=== PATIENT | female | born 1995 | race Caucasian/White ===

== ENCOUNTER 2021-08-27 14:52 | Emergency (ER) | payer OTHER, SELFPAY ==
--- NOTE | ~2021-08-27 | XR_ITS ---
EXAMINATION: XR SHOULDER, LEFT CLINICAL INFORMATION: Pain COMPARISON: None TECHNIQUE: Left shoulder is imaged in 5 views. FINDINGS: There is no fracture, dislocation, destructive process. The acromioclavicular alignment is normal. The glenohumeral joint appears normal. There are no visible rotator cuff calcifications. Left lung apex is clear. XR/XR shoulder LT min 2V IMPRESSION: Normal left shoulder.
[2021-08-27 15:24] VITALS: BP 147/85; PULSE 98; RESP 18; TEMP 36.6; O2SAT 100; BMI 27.3
--- NOTE | 2021-08-27 17:47 | ED_ITS ---
HPI - Extremity Problem General Chief complaint: Extremity Injury, Upper Stated complaint: L DISLOCATED SHOULDER Time Seen by Provider: 08/27/21 17:47 Source: patient Mode of arrival: ambulatory Limitations: no limitations and other History of Present Illness HPI Narrative: 25 yo female no known medical hx presents to the ED with complaints of left shoulder pain X8-9 hours. Patient tells me that she woke up with pain overlying her left shoulder blade, and shoulder pain, she also reports numbness and tingling overlying her scapula. She tells me she had no trauma to the area. She states that she went to her PCP who told her that she had a dislocated shoulder and she had to come to the emergency department for treatment. Patient states that she is able to move the shoulder, however it hurts. MD Complaint: extremity pain (left shoulder pain ) Onset (ago): hour(s) (9) Pain Consistency: constant Location: left Severity scale (1-10): 10 Quality: constant Radiation: none Exacerbating factors: nothing Associated symptoms: denies other symptoms Related Data Allergies Allergy/AdvReac Type Severity Reaction Status Date / Time No Known Allergies Allergy Unverified 06/11/20 16:58 Review of Systems Review of Systems: Constitutional : No Weight loss, No Fever, No Chills, No Fatigue, No Malaise ENT/Mouth : No sore throat, No Rhinorrhea Eyes: No Eye Pain, No Swelling, No Redness Cardiovascular : No Chest Pain, No SOB, No Dyspnea on Exertion, No Orthopnea, No Edema, No Palpitations Respiratory : No Cough, No Sputum, No Wheezing Gastrointestinal : No Nausea, No Vomiting, No Diarrhea, No Constipation, No abdominal Pain, No Hematochezia, No Melena Genitourinary : No Dysuria, No Urinary Frequency, No Hematuria, Musculoskeletal : + joint pain, No Myalgias, No Joint Swelling Skin : No Skin Lesions, No rash Neuro : No Weakness, No Numbness, No Dizziness, No Headache Psych : No Anxiety/Panic, No Depression All other systems reviewed and are negative [facility] Past Medical History Attestation statement: The following information was validated with the patient. Source: old records reviewed and nursing notes reviewed Medical History No known health problems Social History Social History Advance Directives: No Advance Directives Information Provided: No Physical Exam Vital Signs: Vital Signs: Last Vital Signs Temp 97.8 F 08/27/21 15:24 Pulse 98 08/27/21 15:24 Resp 18 08/27/21 15:24 BP 147/85 H 08/27/21 15:24 Pulse Ox 100 08/27/21 15:24 BMI result Body Mass Index 27.3 VSS Patient noted to be slightly hypertensive, likely secondary to pain Appearance: Alert.? Oriented X3.? No acute distress.? Head: Normocephalic, atraumatic, no step-offs or deformities Eyes: Pupils equal, round and reactive to light.? ENT: Pharynx normal.? Neck: Normal inspection.? Neck supple.? CVS: Normal heart rate and rhythm.? Pulses normal.? Respiratory: No respiratory distress.? Breath sounds normal.? Abdomen: Soft and nontender.? Skin: Skin warm and dry.? Normal skin color.? Normal skin turgor.? Extremities: 5/5 strength to bilateral upper and lower extremities Bilateral shoulders with full range of motion, she reports pain with movement of left shoulder. Patient reports pain to palpation overlying the left scapula, no pain to the right scapula. No overlying skin changes. Sensation and motor intact bilateral upper extremities. 2+ pulses equal bilateral. No s tep-offs or deformities noted. No evident ligamentous or tendon involvement. No signs of dislocation on exam. Patient able to wiggle all fingers. Back: No midline tenderness, no C-spine tenderness, full range of motion, no CVA tenderness bilaterally Neuro: Oriented X 3.? No motor deficit.? No sensory deficit. MDM - Extremity (Nontraumatic) MDM Narrative Medical decision making narrative: 1838 25-year-old healthy female presents to the emergency department with complaints of left shoulder pain, atraumatic that started 8-9 hours ago. Patient states pain is worse with movement better at rest, she also reports pain to the left scapula. She tells me she saw her PCP who told her that she likely has a dislocated shoulder. She denies trauma to the area. Upon physical examination patient appears well, no acute distress. She is able to move all her extremities without any issues. S1-S2 appreciated free of murmurs. Lungs are clear.5/5 strength to bilateral upper and lower extremities Bilateral shoulders with full range of motion, she reports pain with movement of left shoulder. Patient reports pain to palpation overlying the left scapula, no pain to the right scapula. No overlying skin changes. Sensation and motor intact bilateral upper extremities. 2+ pulses equal bilateral. No step-offs or deformities noted. No evident ligamentous or tendon involvement. No signs of dislocation on exam. Patient able to wiggle all fingers. I suspect that this is a cervical/thoracic muscle strain, or shoulder strain. there is reproducible pain to palpation. Patient got an x-ray of the shoulder, which showed no acute findings. No AC separation, no dislocation, no fractures, effusions or joint swelling I tried to explain this to the patient, and I told her that there is no dislocation noted on her x-ray. Patient got very agitated, and told me that there needs to be something that is wrong with her because she is having severe pain to her left scapula, and sometimes she feels like there is pain in her spine. I told her that I cannot rule out any tendon or ligament injuries as this requires an MRI, patient tells me that her primary care provider thought that it was dislocated in its likely dislocated. I tried to share x-ray results with her however she kept telling me your telling me that there is nothing wrong with me . she tried to tell me that her primary care provider was very concerned and that is why they sent her here to the emergency department. I offered to reach out to her primary care provider and speak to her to try to figure out what worrisome symptom was concerning her PCP. Patient tells me that there is no when I can speak to at her PCPs office. She tells me that she is very upset, she is screaming at me and her boyfriend is telling me I do not think you understand what is wrong with her after I asked her of her elbow was bothering her because they noted that she was guarding her left elbow. Patient tells me know this is just a more comfortable position for me. I offered to give the patient medicine for pain, and muscle relaxers and was going to offer her follow-up with Orthopedics however patient left and told me this is something by primary care provider can deal with. I tried to explain to the patient that MRIs are only done in life-threatening situations here in the emergency department as we have limited access. Patient was very rude and boyfriend was very rude. I called security as patient was screaming at me in the hallway in front of other patients and causing a scene. Medical Records Attestation: I reviewed the patient's medical records. Lab Data Attestation: I reviewed the patient's lab results. Imaging Data Left shoulder Xray : Attestation: I personally reviewed and interpreted this imaging study as follows: Radiologist's impression: FINDINGS: There is no fracture, dislocation, destructive process. The acromioclavicular alignment is normal. The glenohumeral joint appears normal. There are no visible rotator cuff calcifications. Left lung apex is clear.? XR/XR shoulder LT min 2V IMPRESSION: Normal left shoulder. Critical Care Time Critical Care Time Critical Care Time: No Discharge Plan Discharge Clinical Impression: Left shoulder strain, Strain of thoracic spine Patient Disposition: Elopement
[2021-08-27] MEDS: Acetaminophen 325 MG TABLET 650 MG PO (18:22)
--- NOTE | 2021-08-27 18:38 | PC.NURSE ---
Provider at bedside discussing results and plan of care. Pts SO became very upset, yelling at provider regarding XRay results. Security contacted, pt and SO fleeing ED before security was able to make it to bedside.
== END 2021-08-27 19:10 | disposition left against medical advice (07) ==
PROVIDERS: Emergency Provider Internal Medicine; PCP Nurse Practitioner Family
DX: S46.911A Strain of unspecified muscle, fascia and tendon at shoulder and upper arm level, right arm, initial encounter (principal); S29.012A Strain of muscle and tendon of back wall of thorax, initial encounter; X58.XXXA Exposure to other specified factors, initial encounter; Y93.9 Activity, unspecified; Y92.9 Unspecified place or not applicable; Y99.9 Unspecified external cause status
CPT/HCPCS: 73030; 99283